=== PATIENT | female | born 1955 | race Caucasian/White ===

== ENCOUNTER 2025-01-22 09:41 | Outpatient (CLI) | payer MEDICARE, SELFPAY ==
--- OUTSIDE RECORDS SUMMARY | 2025-01-22 10:22 | XMS_ITS | Patient Health Record ---
Author Organization [facility] Address [address] [place], [place] [address] Care Team Providers Care Cpr Ambulance Driver Name Role Phone KATARZYNA ESTRELLA Unavailable [phone] MartinezAdryan curran Unavailable Unavailable Allergies Allergen (clinical drug ingredient) Drug/Non Drug Allergy documented on EMR Reaction Allergy Type Onset Date Status Substance with penicillin structure and antibacterial mechanism of action (substance) Penicillins Unknown Drug Allergy 06/04/2019 active Reason For Referral No Information Medications Medication SIG (Take, Route, Frequency, Duration) Notes Start Date End Date Status terbinafine 250 MG Oral Tablet ORAL terbinafine 250 MG Oral TabletOriginal Medicationterbinafine 250 MG Oral Tablet *Reorder from [employer] for eRx and Interaction Alerts* 06/08/2019 Active Plan Of Treatment No Information Insurance Providers Payer Name Payer Address Payer Phone Subscriber Number Group Number Insured Name Patient Relationship to Insured Coverage Start Date Coverage End Date Medicare Part B [place] [address] [place] [address] [id number] WHITESID E, BASS Self - patient is the insured [facility] [address] [address] [place] [address] [id number] WHITESID E, BASS Self - patient is the insured [facility] [address] [place], [place] [id number] WHITESID E, BASS Self - patient is the insured
--- OUTSIDE RECORDS SUMMARY | 2025-01-22 10:23 | XMS_ITS | Clinical Summary ---
Author Organization [facility] Address [address] [place] [address] Phone Care Team Providers Care Sow Farm Technician Name Role Phone Adryan Martinez MD Primary Care Provider [phone] Allergies Active Allergy Reactions Criticality Noted Date Comments Penicillins Hives,Itching,Swelling High 04/04/2019 Medications naproxen sodium (ALEVE) 220 MG Tablet Take 220 mg by mouth 2 times daily (with meals). Active Calcium Carbonate-Vitam in D (CALTRATE 600+D PO) Take 1 Tab by mouth daily. Active estradiol (ESTRACE) 1 MG Tablet Take 1 mg by mouth daily. Hazardous: Medication requires special safe handling and disposal. Active medroxyPROGESTE Alcides (PROVERA) 2.5 MG Tablet Take 2.5 mg by mouth daily. Hazardous: Medication requires special safe handling and disposal. Active Multiple Vitamin (MULTIVITAMINS PO) Take 1 Tab by mouth daily. Active vitamin b-12 (CYANOCOBALAMIN ) 500 MCG Tablet Take 500 mcg by mouth daily. Active ascorbic acid (ASCORBIC ACID) 500 MG Tablet Take 500 mg by mouth daily. Active Menthol, Topical Analgesic, (BIOFREEZE) 4 % Gel by Apply externally route as needed. Active Aspirin-Caffein e (RITA BACK & BODY PAIN EX ST) 500-32.5 MG Tablet Take 1 Tablet by mouth as needed. Active celecoxib (CeleBREX) 200 MG Capsule Take 200 mg by mouth. Active Acetaminophen (TYLENOL PO) Take by mouth. Ac tive Diclofenac Sodium (Voltaren) 1 % Gel Apply 4 times daily as needed. Active Cholecalciferol (Vitamin D-3 Super Strength) 50 mcg Tablet Take 1 Tablet by mouth daily. Active Brinzolamide (AZOPT OP) Place in affected eye(s). Active TURMERIC PO Take 200 mg by mouth daily. Active Active Problems Problem Noted Date Diagnosed Date Spinal stenosis of lumbar re gion without neurogenic claudication 04/05/2019 Family History Medical History Relation Name Comments Chronic Obstructive Pulmonary Disease Father Relation Name Status Comments Father Mother Alive Social History Tobacco Use Types Packs/Day Years Used Date Smoking Tobacco: Former Cigarettes Q uit: 2013 Smokeless Tobacco: Never Tobacco Cessation:Counseling Given: Not Answered Alcohol Use Standard Drinks/Week Comments Not Currently 0 (1 standard drink = 0.6 oz pur e alcohol) SOCIALLY Sexually Active Control Partners Comments Yes Post-menopausal Male Comments Unknown Sex and Gender Information Value Date Recorded Sex Assigned at Not on file Legal Sex Female 8:36 AM CDT Gender Identity Not on file Sexual Orientation Not on file Last Filed Vital Signs Vital Sign Reading Time Taken Comments Blood Pressure 127/66 08/01/2024 12:55 PM DOCUMENTATION ANALYST Pulse 83 08/01/2024 12:46 PM DOCUMENTATION ANALYST Temperature 36.5 C (97.7 F) 08/01/2024 12:46 PM DOCUMENTATION ANALYST Respiratory Rate 16 08/01/2024 12:55 PM DOCUMENTATION ANALYST Oxygen Saturation 96% 08/01/2024 12:55 PM DOCUMENTATION ANALYST Inhaled Oxygen Concentration - - Weight 72.6 kg (160 lb 1 oz) 08/01/2024 9:09 AM DOCUMENTATION ANALYST Height 154.9 cm (5' 1 ) 08/01/2024 9:09 AM DOCUMENTATION ANALYST Body Mass Index 30.24 08/01/2024 9:09 AM DOCUMENTATION ANALYST Plan of Treatment Health Maintenance Due Date Last Done Comments Hepatitis C Virus (HCV) Screening 1957 Colonoscopy 2002 Colorectal Cancer Screening 2002 Cologuard 2007 Immunochemical Fecal Occult Blood 2007 Pneumococcal Immunization (50+ years) (1 of 1 - PCV) 2007 Zoster Immunization (1 of 2) 2007 Influenza Immunization (#1) 2024 07/05/2018, 0 09/19/2012 SARS-COV-2 Immunization ( - season) 2024 Mammogram 02/06/2025 02/07/2024, 05/2 09/2023, 12/11/2020, Additional history exists DEXA Bone Density 02/06/2026 02/07/2024 Respiratory Syncytial Virus (RSV) Immunization (Adult) (1 - 1-dose 75+ series) 2032 DTaP/Tdap/Td Immunization Discontinued 04/02/2016 TdaP Immunization Completed 04/02/2016 Hepatitis B Immunization Aged Out No longer eligible based on patient's age to complete this topic Meningococcal Immunization (ACWY) Aged Out No longer eligible based on patient's age to complete this topic Rotavirus Immunization Aged Out No lo nger eligible based on patient's age to complete this topic Insurance MEDICARE COMMERCIAL GENERIC Care Teams Sow Farm Technician Relationship Specialty Start Date End Date Adryan Martinez MD [address] [place] [id number] PCP - General Internal Medicine 04/04/19
--- OUTSIDE RECORDS SUMMARY | 2025-01-22 10:23 | XMS_ITS | Clinical Summary ---
Author Organization [facility] Address [address] [place] [address] Phone Care Team Providers Care Locomotive Lubricating Systems Clerk Name Role Phone Adryan Martinez MD Primary Care Provider [phone] Allergies Active Allergy Reactions Criticality Noted Date Comments Penicillins Hives,Swelling High 12/02/2011 Medications cyanocobalamin (VITAMIN B-12) 1,000 mcg Oral Tab Take 1,000 mcg by mouth daily. Active VitC-Dietary Combo. No.18 60-200 mg Oral Cap Take by mouth. Active MULTIVITAMIN W-MINERALS/LUTEI N (CENTRUM SILVER ORAL) Take by mouth. Active CALCIUM CARBONATE/VITAMI N D3 (CALTRATE 600 + D ORAL) Take by mouth. Active estradiol (ESTRACE) 1 mg tablet TAKE ONE TABLET BY MOUTH DAILY. 90 Tablet 3 03/10/2017 Active medroxyPROGESTER one (PROVERA) 2.5 mg tablet TAKE 1 TABLET BY MOUTH DAILY. 90 Tablet 3 03/10/2017 Active Active Problems No known active problems Immunizations Immunization Administration Dates Next Due Influenza Seasonal Unspecified Formulation IM Family History Medical History Relation Name Comments Breast Cancer Neg Hx Cancer Neg Hx Ovarian Cancer Neg Hx Social History Tobacco Use Types Packs/Day Years Used Date Smoking Tobacco: Former Cigarettes 0.5 40 Smokeless Tobacco: Former Quit: 05/20/2011 Tobacco Cessation:Ready to Q uit: Yes; Counseling Given: No Comments:needs something to help with the smoking Alcohol Use Standard Drinks/Week Comments Yes 0 (1 standard drink = 0.6 oz pur e alcohol) socially Comments No Sex and Gender Information Value Date Recorded Sex Assigned at Not on file Legal Sex Female 6:07 AM SENIOR CORPORATE STRATEGY MANAGER Gender Identity Not on file Sexual Orientation Not on file 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 on file Not on file Not on file Last Filed Vital Signs Vital Sign Reading Time Taken Comments Blood Pressure 120/68 03/01/2017 10:17 AM CDT Pulse - - Temperature - - Respiratory Rate - - Oxygen Saturation - - Inhaled Oxygen Concentration - - Weight 73.9 kg (163 lb) 03/01/2017 10:17 AM CDT Height 157.5 cm (5' 2 ) 03/01/2017 10:17 AM CDT Body Mass Index 29.81 03/01/2017 10:17 AM CDT Plan of Treatment Health Maintenance Due Date Last Done Comments DTAP/TDAP/TD VACCINES (1 - Tdap) 1976 COLORECTAL SCREENING 2002 Colorectal Cancer Screening 2002 FIT-DNA Q 3 years 2002 FIT/FOBT Q 1 year 2002 Flex Sig/CT Colonography Q 5 years 2002 PNEUMOCOCCAL VACCINE 50+ YEA RS (1 of 1 - PCV) 2007 ZOSTER VACCINE (1 of 2) 2007 BREAST CANCER SCREENING 03/01/2018 03/01/20 17 (Previously completed), 03/01/2017, 01/06/2016, Additional history exists OSTEOPOROSIS SCREENING 2022 INFLUENZA VACCINE (#1) 2024 09/19/2012 RSV VACCINE (60+ or ) (1 - 1-dose 75+ series) 2032 Procedures Procedure Name Priority Date/Time Associated Diagnosis Comments MAMMO SCREEN BILAT W OR WO CAD Routine 03/01/2017 9:57 AM CDT Visit for screening mammogram from Last 3 Months or Most Recently Relevant to Health Maintenance Results * MAMMO SCREEN BILAT W OR WO CAD (03/01/2017 9:57 AM CDT) Anatomical Region Laterality Modality Breast Bilateral Mammography Narrative 03/01/2017 11:08 AM CDT Bilateral digital screening mammogram with computer assisted diagnosis History: Annual screening exam. Findings: A bilateral screening mammogram was performed. Comparison is made to : 01/06/2016, 12/24/2014, and 12/18/2013 There are scattered fibroglandular densities. No new masses, suspicious calcifications, or areas of asymmetry or distortion are identified. CAD was utilized. Impression: Negative screening mammogram. Recommendation: Routine annual follow-up Overall Assessment: Birads Category 1: Negative Zion Tierney MD MAMMO ORDERABLES Final Result from Last 3 Months or Most Recently Relevant to Health Maintenance Insurance [facility] BLUE ACCESS/TRUE BLUE PPO Care Teams Locomotive Lubricating Systems Clerk Relationship Specialty Start Date End Date Adryan Martinez MD [address] [place] [phone] PCP - General Internal Medicine 10/15/11
--- OUTSIDE RECORDS SUMMARY | 2025-01-22 10:23 | XMS_ITS | Clinical Summary ---
Author Organization [facility] Address [address] [place] [address] Care Team Providers Care Dredge Worker Name Role Phone Adryan Martinez MD Primary Care Provider [phone] Allergies Active Allergy Reactions Criticality Noted Date Comments Penicillins Hives 03/18/2021 Medications medroxyPROGESTER one 2.5 MG tablet Take 2.5 mg by mouth daily. 03/06/2021 Active vitamin B-12 1000 MCG tablet Take 1,000 mcg by mouth daily. Active Active Problems No known active problems Encounters Date Type Department Care Team Description 11/20/2024 10:08 AM PLATER APPRENTICE - 11/20/2024 11:59 PM [facility] Hospital Encounter [facility] [address] [place] [address] Selena Wolf PA Discharge Disposition: Home or Self Care (Routine Discharge) 11/20/2024 Travel from Last 3 Months Family History Medical History Relation Comments Breast Cancer Daughter No Known Problems Father No Known Problems Mother Relation Status Comments Daughter Father Mother Social History Tobacco Use Types Packs/Day Years Used Date Smoking Tobacco: Former Cigarettes Q uit: 10/16/2010 Smokeless Tobacco: Never Tobacco Cessation:Counseling Given: No Comments:quit Alcohol Use Standard Drinks/Week Comments Yes 0 (1 standard drink = 0.6 oz pur e alcohol) rare Comments No Sex and Gender Information Value Date Recorded Sex Assigned at Not on file Legal Sex Female 8:27 PM CDT Gender Identity Not on file Sexual Orientation Not on file Last Filed Vital Signs Vital Sign Reading Time Taken Comments Blood Pressure 136/89 05/07/2021 10:30 AM CDT Pulse 77 05/07/2021 10:30 AM CDT Temperature 35.9 C (96.6 F) 05/07/2021 10:30 AM CDT Respiratory Rate 15 03/18/2021 6:38 PM CDT Oxygen Saturation 98% 05/07/2021 10:30 AM CDT Inhaled Oxygen Concentration - - Weight 79.5 kg (175 lb 3.2 oz) 05/07/2021 10:30 AM CDT Height 157.5 cm (5' 2 ) 05/07/2021 10:30 AM CDT Body Mass Index 32.04 05/07/2021 10:30 AM CDT Plan of Treatment Health Maintenance Due Date Last Done Comments Colorectal Cancer Screening Colonoscopy (10 Years) 1955 Hepatitis C 1975 DTaP, Tdap and Td Vaccines (1 - Tdap) 1976 Pneumococcal Vaccine: 50+ Years (1 of 1 - PCV) 2007 Zoster Vaccines (1 of 2) 2007 Annual Medicare Wellness Visit 2022 COVID-19 Vaccine ( - 2023- season) 2024 Mammogram Screening 02/06/2026 02/07/2024, 12/11/2020, 03/01/2017, Additional history exists RSV Immunization or 60+ Years (1 - 1-dose 75+ series) 2032 Dexa Scan (General) Completed 02/07/2024 Meningococcal B Vaccine Aged Out No l onger eligible based on patient's age to complete this topic Meningococcal Vaccine Aged Out No mark anthony oralia eligible based on patient's age to complete this topic RSV Immunizations Under 20 Months Aged Out No longer eligible based on patient's age to complete this topic Procedures Procedure Name Priority Date/Time Associated Diagnosis Comments XR CERV SPINE W OBL 5V Routine 11/20/2024 10:48 AM PLATER APPRENTICE Cervicalgia Other disturbances of skin sensation MG SCREENING W SVEN ERIN DIGI Routine 02/07/2024 3:46 PM CDT Encounter for screening mammogram for malignant neoplasm of breast BONE DENSITY/DEXA Routine 02/07/2024 3:4 6 PM CDT Postmenopausal from Last 3 Months or Most Recently Relevant to Health Maintenance Results * XR CERV SPINE W OBL 5V (11/20/2024 10:48 AM PLATER APPRENTICE) Anatomical Region Laterality Modality Spine Radiographic Chery ging 11/21/2024 8:10 AM PLATER APPRENTICE Impressions 11/21/2024 8:12 AM PLATER APPRENTICE IMPRESSION: Degenerative changes of the mid cervical spine. Ordered By: SELENA WOLF Interpreted By: Mychal Mayo MD, 11/21/2024 8:10 AM Narrative 11/21/2024 8:12 AM PLATER APPRENTICE [facility] [address] [address] [place] [address] Procedure(s): XR CERV SPINE W OBL 5V Date of service: 11/20/2024 10:37 AM Provided clinical information: 69 years, Female, CERVICALGIA Procedure and materials: AP, lateral, odontoid, and oblique views of the cervical spine. Comparison studies: None. Findings: The odontoid is intact. There is possibly 1 to 2 mm of subluxation of C4 relative to C5 and C5 relative to C6. This is suspected to be degenerative in etiology. Loss height of the disc space is present at C6-7. Prevertebral soft tissues are within normal limits. There is left neural foraminal narrowing at C3-4 and C5-6. No fracture, dislocation or acute bony abnormality. Procedure Note Mychal Mayo MD - 11/21/2024 [facility] [address] [address] [facility]. [place] [id number] Procedure(s): XR CERV SPINE W OBL 5V Date of service: 11/20/2024 10:37 AM Provided clinical information: 69 years, Female, CERVICALGIA Procedure and materials: AP, lateral, odontoid, and oblique views of thecervical spine. Comparison studies: None. Findings: The odontoid is intact. There is possibly 1 to 2 mm of subluxation of C4 relative to C5 and [id number] to C6. This is suspected to be degenerative in etiology. Lossheight of the disc space is present at C6-7. Prevertebral soft tissues are within normal limits. There is left neural foraminal narrowing at C3-4 and C5-6. No fracture, dislocation or acute bony abnormality. IMPRESSION: Degenerative changes of the mid cervical spine. Ordered By: SELENA WOLF Interpreted By: Mychal Mayo MD, 11/21/2024 8:10 AM [facility] Final Result * MG SCREENING W SVEN ERIN DIGI (02/07/2024 3:46 PM CDT) Anatomical Region Laterality Modality Breast Bilateral Mammography 02/07/2024 4:05 PM CDT Impressions 02/07/2024 4:06 PM CDT IMPRESSION: No suspicious mammographic findings. Recommendation: 1. Routine Screening, Bilateral Assessment: ACR BI-RADS 2 - BENIGN FINDING(S) Ordered By: SIGRID SALVADOR Interpreted By: Zohaib Sexton, 02/07/2024 4:05 PM Narrative 02/07/2024 4:06 PM CDT Examination: Screening bilateral mammogram Exam Date/Time: 02/07/2024 3:00 PM Clinical history: No current complaints. Comparison: 12/11/2020 Technique: Digital screening mammography of both breasts was performed. Breast tomosynthesis acquisitions were obtained and reviewed. This study was read with the assistance of a computer-aided detection system. Tissue density: There are scattered areas of fibroglandular density. Findings: No suspicious masses, malignant appearing calcifications, skin thickening or other abnormalities are present. No significant change from the prior exam. us Sigrid Salvador DO MAMMO Final Resul t * BONE DENSITY/DEXA (02/07/2024 3:46 PM CDT) Anatomical Region Laterality Modality Bone Bone Density 02/07/2024 8:26 PM CDT Impressions 02/07/2024 8:27 PM CDT IMPRESSION: WHO Classification: osteopenia. FRAX: 1.4% chance of hip fracture and 9.9% chance of major osteoporotic fracture over the next 10 years. Referred By: SIGRID SALVADOR Interpreted By: Gonsalo Bo MD, 02/07/2024 8:26 PM Narrative 02/07/2024 8:27 PM CDT Examination: Bone Density Axial Exam Date/Time: 02/07/2024 3:00 PM Reason For Exam: Postmenopausal Findings: DEXA bone densitometry The bone mineral density (BMD) was determined by dual-energy x-ray absorptiometry, the results are as follows: AP Lumbar Spine L1 through L4 BMD Patient (GM/SQCM): 1.045 T-Score (Standard deviations from young adult peak bone density): 0.0 Left femoral neck: BMD Patient (GM/SQCM): 0.639 T-Score (Standard deviations from young adult peak bone density): -1.9 Total Left femur: BMD Patient (GM/SQCM): 0.897 T-Score (Standard deviations from young adult peak bone density): -1 Recommendations: All patients should ensure an adequate intake of dietary calcium and vitamin D. The NOF recommend adults under the age of 50 need 1000 mg of calcium and 400-800 IU of vitamin D daily. Effective therapy for the prevention and treatment of osteoporosis include biphosphonates. Follow-up: People with diagnosed cases of osteoporosis or at high risk for fracture should have regular bone mineral density test. For patients eligible for Medicare, routine testing is allowed once every 2 years. Testing frequency can be increased to one year for patients who have rapidly progressing disease, those who are receiving or discontinuing medical therapy to restore bone mass, or have additional risk factors. Procedure Note Gonsalo Bo MD - 02/07/2024 Examination: Bone Density Axial Exam Date/Time: 02/07/2024 3:00 PM Reason For Exam: Postmenopausal Findings: DEXA bone densitometry The bone mineral density (BMD) was determined bydual-energy x-ray absorptiometry, the results are as follows: AP Lumbar Spine L1 through L4 BMD Patient (GM/SQCM): 1.045 T-Score (Standard deviations from young adult peak bonedensity): 0.0 Left femoral neck: BMD Patient (GM/SQCM): 0.639 T-Score (Standard deviations from young adult peak bonedensity): -1.9 Total Left femur: BMD Patient (GM/SQCM): 0.897 T-Score (Standard deviations from young adult peak bonedensity): -1 Recommendations: All patients should ensure an adequate intake of dietary calcium andvitamin D. The NOF recommend adults under the age of 50 need 1000 mg ofcalcium and 400-800 IU of vitamin D daily. Effective therapy for theprevention and treatment of osteoporosis include biphosphonates. Follow-up: People with diagnosed cases of osteoporosis or at high risk for fractureshould have regular bone mineral density test. For patients eligible forMedicare, routine testing is allowed once every 2 years. Testing frequencycan be increased to one year for patients who have rapidly progressingdisease, those who are receiving or discontinuing medical therapy torestore bone mass, or have additional risk factors. IMPRESSION: WHO Classification: osteopenia. FRAX: 1.4% chance of hip fracture and 9.9% chance of major osteoporoticfracture over the next 10 years. Referred By: SIGRID SALVADOR Interpreted By: Gonsalo Bo MD, 02/07/2024 8:26 PM us Sigrid Salvador DO DEXA Final Resul t from Last 3 Months or Most Recently Relevant to Health Maintenance Insurance MEDICARE [facility] [employer] Care Teams Dredge Worker Relationship Specialty Start Date End Date Adryan Martinez MD [address] [place] [id number] PCP - General INTERNAL MEDICINE 05/11/19
--- OUTSIDE RECORDS SUMMARY | 2025-01-22 10:23 | XMS_ITS ---
Author Organization [facility] Address [address] [place], [place] [id number] Care Team Providers Care Day Care Supervisor Name Role Phone KATARZYNA ESTRELLA Unavailable [phone] Adryan Martinez Unavailable Unavailable YANCI CONNOR Unavailable [phone] Allergies Allergen (clinical drug ingredient) Drug/Non Drug Allergy documented on EMR Reaction Allergy Type Onset Date Status Substance with penicillin structure and antibacterial mechanism of action (substance) Penicillins Unknown Drug Allergy 06/04/2019 active REASON FOR VISIT L ft rolled it at home Medications Medication SIG (Take, Route, Frequency, Duration) Notes Start Date End Date Status terbinafine 250 MG Oral Tablet ORAL terbinafine 250 MG Oral TabletOriginal Medicationterbinafine 250 MG Oral Tablet *Reorder from [employer] for eRx and Interaction Alerts* 06/08/2019 Active Vital Signs Height 62.00 in 11/17/2023 Weight 170 lbs 11/17/2023 BMI 31.09 kg/m2 11/17/2023 Height-cm 157.48 cm 11/17/2023 Weight-kg 77.11 kg 11/17/2023 Encounters Encounter Location Date Provider Diagnosis [address] [id number] 11/17/2023 YANCI CONNOR Sprain of calcaneofibular ligament of left ankle, initial encounter S93.412A ; Localized edema R60.0 ; Pain in left foot M79.672 and Flat foot [pes planus] (acquired), left foot M21.42 Assessments Encounter Date Diagnosis (ICD Code) Assessment Notes Treatment Notes Treatment Clinical Notes Section Notes 11/17/2023 Sprain of calcaneofibular ligament of left ankle, initial encounter (ICD-10 - S93.412A) Ankle Sprain: Discussed the treatment course for ankle sprain. Explained that ankle injuries may take a total of 6-12 weeks for recovery based on the severity of the sprain. Stressed the importance of rest, activity modification, and bracing. A trilok ankle brace was dispensed for the pateint's left and the patient was instructed on it's use. 11/17/2023 Localized edema (ICD-10 - R60.0) 11/17/2023 Pain in left foot (ICD-10 - M79.672) 11/17/2023 Flat foot [pes planus] (acquired), left foot (ICD-10 - M21.42) Patient educated on etiology and treatment options for flexible flat foot deformity. Educated patient on how a flexible flat foot deformity can in turn result in pathology such as hammer toe, bunions, equinus, neuromas. Recommend use of custom foot inserts to help alleviate plantar peak pressures and accomodate for digital deformity to feet. Plan Of Treatment Treatment Notes Assessment Notes Sprain of calcaneofibular li gament of left ankle, initial encounter Ankle Sprain: Discussed the treatment course for ankle sprain. Explained that ankle injuries may take a total of 6-12 weeks for recovery based on the severity of the sprain. Stressed the importance of rest, activity modification, and bracing. A trilok ankle brace was dispensed for the pateint's left and the patient was instructed on it's use. Flat foot [pes planus] (acquired), left foot Patient educated on etiology and treatment options for flexible flat foot deformity. Educated patient on how a flexible flat foot deformity can in turn result in pathology such as hammer toe, bunions, equinus, neuromas. Recommend use of custom foot inserts to help alleviate plantar peak pressures and accomodate for digital deformity to feet. Next Appt Details Follow Up: prn, Reason: Progress Notes * SHELIA COLUDDOB:1955 (68 yo F)Acc No.[id number]:11/17/2023 Patient: Monse SHELIA SUAREZ Provider: Bryan CONNOR :1955 A ge:68 Y S ex:Female Date:11/17/2023 Address:[address], [place] [address] Subjective: * Chief Complaints: * 1 . L ft rolled it at home. * HPI: H PI: New Complaint E stablished patient presents with a new complaint., Patient complains of an issue to Left ankle, Duration of problem is few hours. Patient rolled her ankle this morning., Patient states since she rolled the ankle it has been swelling and causing pain with each step, especially with motion to the ankle joint.. * ROS: G eneral / Constitutional: Patient denies w eakness. C ardiovascular: Patient denies c hest pain, history of DE, irregular heartbeat. M usculoskeletal: Patient complains of j oint stiffness, joint pain. ? P eripheral Vascular: Patient denies b lanching of skin, cold extremities, decreased sensation in extremities. S kin: Patient denies f ungal nails, itching. N eurologic: Patient denies d izziness, gait abnormality, headache. * Medical History: * Medications: T aking terbinafine 250 MG Oral Tablet ORAL , Notes to Pharmacist: terbinafine 250 MG Oral TabletOriginal Medicationterbinafine 250 MG Oral Tablet *Reorder from [employer] for eRx and Interaction Alerts* * Allergies: P enicillins: Allergy - Onset Date 06/04/2019. Objective: * Vitals: W t:170lbs, Wt-k.11 kg, Ht: 62.00 in, Ht-cm: 157.48 cm, BMI:31.09Index, Body Surface Area: 1.83. * Examination: P hysical Examination: V ascular: Dorsalis Pedis pulse 2/4 left foot Posterior Tibial pulse 2/4 left foot Dorsalis Pedis pulse 2/4 right foot Posterior Tibial pulse 2/4 right foot, Capillary Refill Time is noted to be less than 3 secs to ten digits, temperature gradient is warm to cool to bilateral lower extremity and pedal hair present, non pitting edema noted over lateral aspect of ankle joint left Dermatologic: there are no open lesions, no signs of active clinical infection, no erythema noted, no ecchymoses, nails are at hygienic length during todays visit Neurology: protective sensation intact to light touch bilateral digits one through five, vibratory sensation intact to first metatarsophalangeal joint bilaterally Musculoskeletal: mild pain to palpation sinus tarsi left foot, mild pain to palpation ATFL left ankle, no pain along anterior ankle joint line, no pain noted to styloid process fifth metatarsal left foot, no pain along course of peroneal tendons left ankle, no pain with anterior drawer test or talar tilt test left ankle. Assessment: * Assessment: 1. S prain of calcaneofibular ligament of left ankle, initial encounter - S93.412A (Primary)?2. L ocalized edema - R60.0 3 . P ain in left foot - M79.672 4 . F lat foot [pes planus] (acquired), left foot - M21.42 Plan: * Treatment: 2. F lat foot [pes planus] (acquired), left foot Notes: Patient educated on etiology and treatment options for flexible flat foot deformity. Educated patient on how a flexible flat foot deformity can in turn result in pathology such as hammer toe, bunions, equinus, neuromas. Recommend use of custom foot inserts to help alleviate plantar peak pressures and accomodate for digital deformity to feet. * Procedure Codes: L 1902 AFO NANCY GATYRESE PREFAB W/FIT&ADJ, Modifiers: LT * Follow Up: p rn * Billing Information: * Visit Code: 46072 Office Visit, Est Pt., Level 3. * Procedure Codes: L1902 AFO NANCY GAUNTLT PREFAB W/FIT&ADJ. Modifiers: LT * CTOR OF ACCOUNTING Sign off status: Completed true * Provider: Bryan CONNOR Date: 0 11/17/2023 Generated for Albertina poole/Nghia/Suzan on: 0 01/22/2025 10:22 AM CDT History and Physical Notes * HPI (History of Present Illness) Category Sub-Category Detail Notes Category Not es HPI New Complaint Established therese ent presents with a new complaint., Patient complains of an issue to Left ankle, Duration of problem is few hours. Patient rolled her ankle this morning., Patient states since she rolled the ankle it has been swelling and causing pain with each step, especially with motion to the ankle joint. Examination Category Sub-Category Detail Notes Category Not es Physical Examination Vascular: Dorsalis Pedis pulse 2/4 left foot Posterior Tibial pulse 2/4 left foot Dorsalis Pedis pulse 2/4 right foot Posterior Tibial pulse 2/4 right foot, Capillary Refill Time is noted to be less than 3 secs to ten digits, temperature gradient is warm to cool to bilateral lower extremity and pedal hair present, non pitting edema noted over lateral aspect of ankle joint left Dermatologic: there are no open lesions, no signs of active clinical infection, no erythema noted, no ecchymoses, nails are at hygienic length during todays visit Neurology: protective sensation intact to light touch bilateral digits one through five, vibratory sensation intact to first metatarsophalangeal joint bilaterally Musculoskeletal: mild pain to palpation sinus tarsi left foot, mild pain to palpation ATFL left ankle, no pain along anterior ankle joint line, no pain noted to styloid process fifth metatarsal left foot, no pain along course of peroneal tendons left ankle, no pain with anterior drawer test or talar tilt test left ankle
--- OUTSIDE RECORDS SUMMARY | 2025-01-22 10:23 | XMS_ITS | Data Portability ---
Author Organization [facility] for [facility], [id number] [facility] Address [address] [place] [address] Assessment No assessment recorded. Plan of Treatment Reminders Order Date Submit Date Provider Last Modified By Organization Details Last Modified Time Details Appointments ANNUAL- EST 15 2025 10:45A M HETAL ZACARIAS Not available Not available Not available Lab None recorded. Referral None recorded. Procedures None recorded. Surgeries None recorded. Imaging MAMMO, screening , digital, bilateral 2024 [facility] As Of [facility]/09/24), [address] [place], [address], 01/09/2025 12:44:41 Medication Orders None recorded. Patient TargetsNo targets recorded. Patient InstructionsNo instructions recorded. Reason for Referral None Reported. Problems Name Problem SNOMED Code Status Onset Date Resolution Date Notes Provider Name and Address Organization Details Recorded Time Genitourina ry syndrome of menopause 5309107781697 9104 Active 2024 HETAL ZACARIAS [address] [facility] [address], [place], [address] [place] [address] for [facility] 12:39:56 Problem Notes None recorded. Procedures Surgical History Date Name Laterality Status Provider Name and Address Organization Details Recorded Time 02/07/20 Date of Last Mammogram completed Zuleyma Isidro [facility] 01/09/2025 12:42:49 10/20/19 21 Date of Last Pap Smear completed Zuleyma Isidro [facility] for [facility] 01/09/2025 09:52:54 09/19/19 19 Date of Last Colonoscopy completed Zuleyma Isidro [facility] for [facility] 01/09/2025 09:54:51 09/19/19 19 epidural steroid injection completed Zuleyma Isidro [facility] 01/09/2025 09:56:32 Tubal Ligation completed Zuleyma Isidro [facility] 01/09/2025 09:57:27 uterus destructive procedure completed Zuleyma Isidro [facility] for [facility] 01/09/2025 09:58:51 Inject spine lumbar/sacral completed Not Available [facility] 01/17/2025 16:15:13 laparoscopic sterilization completed Not Available [facility] 01/17/2025 16:15:13 extraction of wisdom tooth completed Not Available [facility] 01/17/2025 16:15:13 colonoscopy completed Not Available [facility] 01/17/2025 16:15:13 Imaging Results None recorded. Procedure Notes None recorded. Medical Equipment None Reported. Allergies Allergen ID Allergen Name Allergen Category Reaction Reaction Severity Criticality Documentation Date Start Date Code Code System Note Provider Name and Address Organization Details Recorded Time 056847 Product containin g penicilli n (product) medicatio n Not available Not available Not available 01/09/2025 82112 8001 [facility] 12:17:19 Medications Name Sig Start Date Stop Date Status Note LastModified by Organization Details LastModified Time celecoxib 200 mg capsule TAKE 1 CAPSULE(S ) BY MOUTH DAILY DIRECTED 01/09 completed Not Available Not Available Not Available prednisone 10 mg tablet TAKE 2TABS DAILY X5DAYS, 1TAB DAILY X5DAYS, 1TAB EVERY OTHER DAY UNTIL FINISHED 01/09 completed Not Available Not Available Not Available pregabalin 50 mg capsule TAKE 1 CAPSULE BY MOUTH TWICE A DAY active Not Available Not Available No t Available Ozempic 0.25 mg or 0.5 mg (2 mg/3 mL) subcutaneou s pen injector INJECT 0.25MG UNDER THE SKIN ONCE WEEKLY FOR 4 WEEKS active Not Available Not Available No t Available Vitals Date Recorded Body height Body mass index (BMI) Body weight Systolic blood pressure Diastolic blood pressure Provider Name and Address Organization Details Last Updated DateTime 01/09/2025 154.94 cm 28.8 kg/m2 73802.76 g 108 mm[Hg] 58 mm[Hg] Zuleyma Dwaine [facility] for [facility] 12:20:49 Social History Question Answer Notes LastModified by Organizat ion Details LastModified Time Tobacco Smoking Status Former Smoker Zuleyma Dwaine [facility] 01/09/2025 12:17:19 Do You Have An Advance Directive? No Information not available 01/09/2025 What Is Your Level Of Alcohol Consumption? Occasional Information not available 01/09/2025 If You Are , What Was Your Level Of Alcohol Consumption Prior To ? None Information not available 01/09/2025 How Many Years Have You Consumed Alcohol? 50 Information not available 01/09/2025 What Is Your Level Of Caffeine Consumption? Occasional Information not available 01/09/2025 Are You Currently Employed? No Information not available 01/09/2025 What Type Of Diet Are You Following? REGULAR Information not available 01/09/2025 What Is Your Relationship Status? Information not available 01/09/2025 At What Age Did You Start Smoking Tobacco? 17 Information not available 01/09/2025 How Much Tobacco Do You Smoke? No Information not available 01/09/2025 Do You Use Any Illicit Or Recreational Drugs? No [email or web address] Information not available 01/17/2025 Sex: Female Functional Status None recorded. Mental Status None recorded. Family History Relationship Description Onset Age of this Age Resolved Age Notes LastModified by Organization Details LastModified Time Maternal Grandfather Myocardial infarction Myocar dial Infarc tion Not available 01/17/2025 18:07:12 Father Cerebrovascu lar accident Stroke Not available 09/2024 18:07:12 Father Malignant neoplastic disease Cancer father -prost ate PGM- colon, daught er-jackson ast Not available 01/17/2025 18:07:13 Paternal Grandfather Cerebrovascu lar accident Stroke Not available 09/2024 18:07:12 Daughter Malignant neoplastic disease 39 Cancer father -prost ate PGM- colon, daught er-jackson ast Not available 01/17/2025 18:07:12 Daughter Family history of breast cancer 39 Family histor y of breast cancer daught er had geneti c testin g that was negati ve Not available 01/17/2025 18:07:13 Paternal Grandmother Malignant neoplastic disease Cancer father -prost ate PGM- colon, daught er-jackson ast Not available 01/17/2025 18:07:13 Medical History Condition Response Cancer- Genetic screening Gynecological History Statement/Question Response History of PCOS N Date of Last Mammogram 02/07/2024 History of Fibroids N Date of LMP History of Infertility N History of Vulvar Dysplasia N Current Control Method: Menopause History of Cervical Dysplasia N Age at Menarche 14 Current Control Method History of Recurrent Ovarian Cysts N History of Endometriosis N Date of Last Colonoscopy 09/19/2018 Sexually Active? N History of Dysmenorrhea N Menses Monthly N Date of Last HPV Test 10/20/2020 Date of Last Pap Smear 10/20/2020 History of Sexually Transmitted Infectio n N Date of Last Bone Density 11/15/23 Obstetrics History GPAL:G 2 P 2 0 0 2 Type Value Full Term 2 Living 2 Total 2 Immunizations Vaccine Type Date Status Note Provider Nam e and Address Organization Details Recorded Time zoster recombinant 09/19/2015 completed Zuleyma Isidro [facility] 01/09/2025 09:52:25 Past Encounters Encounter ID Performer Location Encounter Start Date Encounter Closed Date Diagnosis/Indication Diagnosis SNOMED-CT Code Diagnosis ICD10 Code Diagnosis Note [id number] [address], [place] [id number] [facility] [address] [facility] [place] [address] 01/09/2025 11:54:28 01/09/2025 12:40:40 Gynecologic examination 39701725 Z01.419 -f/u 1 year for annual [employer] exam Screening mammography 24 369901 Z12.31 -call to schedule mammogram Depression screening 171 806608 Z13.31 01/09/25-sc ore 0 Genitourin betzaida syndrome of menopause [id number] 1088437 N95.8 01/09/25-de clines vaginal estradiol cream at this time-call if you decide to try it and I will send rx Health Concerns Section Related Observation LastModified by Organization Detai ls LastModified Time None Recorded Concern Status LastModified by Organization Details LastModified Time None Recorded Advance Directives Directive N: Payers Encounter Date Sequence Insurance Name Policy Number Policy Kauffman Covered Member ID Kauffman Member ID Guarantor Name 01/09/2025 1 [place] Kya Ingram [id number] Kya Ingram 01/09/2025 2 [employer] (MEDICARE SUPPLEMENT) PLAN G Kya Ingram [id number] Kya Ingram Notes Date Note Type Note Provider Name and Address Organization Details Recorded Time 01/09/2025 text/html [facility] Annual Well-Women Visit Age 65+Reported bypatient.Current Medical History:reviewed and documented Last Pap smear:not applicable Mammography:due Bone Density Study:up-to-date Colorectal screening:due Sexually Active:Yes: same partner; dryness with intercourse-uses [place] STI Screen:declines STI testingNotes:01/09 doing well, denies c/o. -cristobal HETAL SYKES [facility] [address] [facility] [address], [place], [address], [facility] 01/09/2025 12:42:51 OBGyn Episode No OBEpisode recorded.
--- NOTE | 2025-01-22 11:00 | NEURO_ITS ---
Impression: # Complains of pain in all extremities. Non-diabetic. ? # Normal Nerve Conduction Study of all extremities. ? # Normal needle/EMG exam without any neurogenic changes. ? # Clinical correlation recommended. Nerve Conduction Studies Anti Sensory Summary Table ?Stim Site NR Peak (ms) P-T Amp (?V) Site1 Site2 Delta-P (ms) Dist (cm) Abhishek (m/s) Left Median Anti Sensory (2-3nd Digit) Wrist ? 3.2 45.9 Wrist 2-3nd Digit 3.2 14.0 44 Wrist ? 3.3 51.8 Wrist 2-3nd Digit 3.2 14.0 44 Right Median Anti Sensory (2-3nd Digit) Wrist ? 2.9 47.2 Wrist 2-3nd Digit 2.9 14.0 48 Wrist ? 3.1 58.0 Wrist 2-3nd Digit 2.9 14.0 48 Left Radial Anti Sensory (Base 1st Digit) Wrist ? 2.3 39.1 Wrist Base 1st Digit 2.3 0.0 Right Radial Anti Sensory (Base 1st Digit) Wrist ? 2.4 27.6 Wrist Base 1st Digit 2.4 0.0 Left Sup Fibular Anti Sensory (Ant Lat Mall) 14 cm ? 3.3 5.8 14 cm Ant Lat Mall 3.3 16.0 48 Right Sup Fibular Anti Sensory (Ant Lat Mall) 14 cm ? 3.6 23.1 14 cm Ant Lat Mall 3.6 16.0 44 Left Sural Anti Sensory (Lat Mall) Calf ? 3.5 20.3 Calf Lat Mall 3.5 16.0 46 Right Sural Anti Sensory (Lat Mall) Calf ? 3.5 10.9 Calf Lat Mall 3.5 16.0 46 Left Ulnar Anti Sensory (5th Digit) Wrist ? 3.0 39.3 Wrist 5th Digit 3.0 14.0 47 Right Ulnar Anti Sensory (5th Digit) Wrist ? 2.5 68.5 Wrist 5th Digit 2.5 14.0 56 Motor Summary Table ?Stim Site NR Onset (ms) O-P Amp (mV) Site1 Site2 Delta-0 (ms) Dist (cm) Abhishek (m/s) Left Median Motor (Abd Poll Brev) Wrist ? 3.1 2.3 Elbow Wrist 4.9 28.0 57 Elbow ? 8.0 2.5 Right Median Motor (Abd Poll Brev) Wrist ? 3.2 2.9 Elbow Wrist 4.5 27.0 60 Elbow ? 7.7 2.7 Left Peroneal Motor (Vastus Med) Ankle ? 4.5 2.9 Popit Ankle 7.4 39.0 53 Popit ? 11.9 2.4 Right Peroneal Motor (Vastus Med) Ankle ? 4.6 2.8 Popit Ankle 7.5 38.0 51 Popit ? 12.1 2.6 Left Tibial Motor (Abd Holcomb Brev) Ankle ? 4.8 6.1 Knee Ankle 8.6 39.0 45 Knee ? 13.4 3.4 Right Tibial Motor (Abd Holcomb Brev) Ankle ? 4.8 4.8 Knee Ankle 8.1 38.0 47 Knee ? 12.9 4.0 Left Ulnar Motor (Abd Dig Minimi) Wrist ? 2.8 6.4 A Elbow Wrist 5.4 28.0 52 A Elbow ? 8.2 5.7 B Elbow Wrist 3.8 20.0 53 B Elbow ? 6.6 4.7 Right Ulnar Motor (Abd Dig Minimi) Wrist ? 2.8 5.3 A Elbow Wrist 5.2 28.0 54 A Elbow ? 8.0 4.1 B Elbow Wrist 3.6 20.0 56 B Elbow ? 6.4 3.8 F Wave Studies ?NR F-Lat (ms) L-R F-Lat (ms) Left Median (Mrkrs) (Abd Poll Brev) ? 26.48 0.58 Right Median (Mrkrs) (Abd Poll Brev) ? 25.91 0.58 Left Peroneal (Mrkrs) (EDB) ? 49.53 0.75 Right Peroneal (Mrkrs) (EDB) ? 50.28 0.75 Left Tibial (Mrkrs) (Abd Hallucis) ? 49.97 0.80 Right Tibial (Mrkrs) (Abd Hallucis) ? 50.77 0.80 Left Ulnar (Mrkrs) (Abd Dig Min) ? 27.34 0.08 Right Ulnar (Mrkrs) (Abd Dig Min) ? 27.42 0.08 EMG ?Side Muscle Nerve Root Ins Act Fibs Amp Dur Recrt Comment Right 1stDorInt Ulnar C8-T1 Nml Nml Nml Nml Nml Right Ext Indicis Radial (Post Int) C7-8 Nml Nml Nml Nml Nml Right Ext Digitorum Radial (Post Int) C7-8 Nml Nml Nml Nml Nml Right BrachioRad Radial C5-6 Nml Nml Nml Nml Nml Right PronatorTeres Median C6-7 Nml Nml Nml Nml Nml Right Abd Poll Brev Median C8-T1 Nml Nml Nml Nml Nml Right ABD Dig Min Ulnar C8-T1 Nml Nml Nml Nml Nml Right FlexPolLong Median (Ant Int) C7-8 Nml Nml Nml Nml Nml Right Abd Poll Long Radial (Post Int) C7-8 Nml Nml Nml Nml Nml Right AntTibialis Dp Br Fibular L4-5 Nml Nml Nml Nml Nml Right Gastroc Tibial S1-2 Nml Nml Nml Nml Nml Right Fibularis Long Sup Br Fibular L5-S1 Nml Nml Nml Nml Nml Right Flex Dig Long Tibial L5-S2 Nml Nml Nml Nml Nml Right Ext Dig Brev Dp Br Fibular L5, S1 Nml Nml Nml Nml Nml Right QuadratusFem QuadFemoris L4-5, S1 Nml Nml Nml Nml Nml Left AntTibialis Dp Br Fibular L4-5 Nml Nml Nml Nml Nml Left Gastroc Tibial S1-2 Nml Nml Nml Nml Nml Left Fibularis Long Sup Br Fibular L5-S1 Nml Nml Nml Nml Nml Left Flex Dig Long Tibial L5-S2 Nml Nml Nml Nml Nml Left Ext Dig Brev Dp Br Fibular L5, S1 Nml Nml Nml Nml Nml Left QuadratusFem QuadFemoris L4-5, S1 Nml Nml Nml Nml Nml Left 1stDorInt Ulnar C8-T1 Nml Nml Nml Nml Nml Left Ext Indicis Radial (Post Int) C7-8 Nml Nml Nml Nml Nml Left Ext Digitorum Radial (Post Int) C7-8 Nml Nml Nml Nml Nml Left BrachioRad Radial C5-6 Nml Nml Nml Nml Nml Left PronatorTeres Median C6-7 Nml Nml Nml Nml Nml Left Abd Poll Brev Median C8-T1 Nml Nml Nml Nml Nml Left ABD Dig Min Ulnar C8-T1 Nml Nml Nml Nml Nml Left FlexPolLong Median (Ant Int) C7-8 Nml Nml Nml Nml Nml Left Abd Poll Long Radial (Post Int) C7-8 Nml Nml Nml Nml Nml Right Biceps Musculocut C5-6 Nml Nml Nml Nml Nml Right Triceps Radial C6-7-8 Nml Nml Nml Nml Nml Right Deltoid Axillary C5-6 Nml Nml Nml Nml Nml MTDD
== END 2025-01-22 09:42 | disposition home or self-care (01) ==
LOC: ANHNEURO 09:43
PROVIDERS: PCP Physician Assistant Medical; Visit Provider Physician Assistant Medical
DX: M79.10 Myalgia, unspecified site (principal); M79.601 Pain in right arm; M79.602 Pain in left arm; R20.8 Other disturbances of skin sensation; R53.83 Other fatigue
CPT/HCPCS: 95886; 95913

== ENCOUNTER 2025-02-05 13:00 | Outpatient (RCR) | payer MEDICARE, SELFPAY ==
--- NOTE | 2024-12-27 15:16 | PTOPEVAL1 ---
Assessment and note entered by Yesika Nolan, PT Evaluation Information Assessment Status Evaluation Diagnosis Cervicalgia, pain in right arm ICD-10 Condition Codes (PT) Cervicalgia M54.2 Other ICD-10 Condition Codes ( pain in left arm, abnormal postures PT) Subjective Information Neck pain longer than UE, but UEs last 6 months. Gradual onset Has not had prior therapies for this issue Reports being tired all the time as well Reports PCP told her earlier this week she had Mononucleosis, is not contagious currenty A month or so ago started lyrica and this helped the arm sensation a lot but the neck pain remains Reports sunburn feeling mely UEs, across shoulders, LUE > RUE beginning about 2/3 up arm on topsides but not top of shoulders, but across upper back and lower neck. Reports this sensation in legs also but has history of lumbar issues had epidural shots a couple months ago Hands also feel tight L>R Reports will get a poke sensation but does not have a trend. 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 She states she has pain in the left arm as well that is worse than the right, both hands feel tight, and she has a sunburn sensation along topside of both UEs and across upper back between shoulder blades. Reports has had neck pain for a long time, but more recent sensations in UEs have been about 6 months with gradual onset. Evaluation shows abnormal postures, possible scoliotic curvature, (+) tone and tension bilat upper trapezius, decreased cervical active ROM and thoracic ROM. Description of pain in UEs does not follow dermatome or peripheral nerve patterns consistent with nerve impingement or thoracic outlet syndrome. Discomfort appears largely related to alignment and muscle compensatory patterns. Pt will greatly benefit from physical therapy in order to address deficits and improve function with decreased pain. Plan of Care Interventions Electrical Stimulation,Hot Pack/Cold Pack,Manual Therapy,Mechanical Traction,Neuro Re-education, Therapeutic Activities,Therapeutic Exercise,Self- Care/Home Management,Ultrasound,Other Other Interventions Taping, bracing PT Services Indicated Yes Treatment Frequency and 1-2x weekly x 10 visits Duration These treatments will address the objective and functional deficits as defined above. The patient will be advanced safely and appropriately in order for the patient to progress towards his/her prior level of function. Additional exercises will be introduced and as well as a comprehensive home exercise program upon discharge, if needed, ?to ensure carryover of functional gains achieved in the clinic. This treatment plan has been reviewed and agreement upon by the patient.
--- NOTE | 2024-12-27 15:16 | OPREHPOC ---
Outpatient Therapy Plan of Care This is a Multidisciplinary Plan of Care that may contain components documented by all disciplines (PT, OT, and ST.) PT Problem 1 PT Problem #1 Knowledge Deficit PT Goal 1 Goal / Goal Update Pt will be independent in HEP Pt will verbalize understanding of diagnosis and prognosis Target Visit 5 PT Problem 2 PT Problem #2 Pain PT Goal 1 Goal / Goal Update Pt will report lowest pain rating at 0/10 to show improvement in overall discomfort Target Visit 5 PT Goal 2 Goal / Goal Update Pt will report greatest pain level at 3/10 or less to improve ADLs and activities Target Visit 10 PT Problem 3 PT Problem #3 Impaired Range of Motion PT Goal 1 Goal / Goal Update Pt till demonstrate thoracic ROM of 50% or greater in all places to off load cervical spine requirement Target Visit 5 PT Goal 2 Goal / Goal Update Pt will demonstrate lateral flexion increase to 40 degrees bilat Target Visit 10
--- NOTE | 2025-02-07 16:54 | PTOPPROG ---
Assessment and note entered by Yesika Nolan, PT Evaluation Information Assessment Status Progress Diagnosis Cervicalgia, pain in right arm ICD-10 Condition Codes (PT) Cervicalgia M54.2 Other ICD-10 Condition Codes ( pain in left arm, abnormal postures PT) Subjective Information Last week 01/31 was working outside with her donkeys and billy and one donkey got spooked. She jumped back, felt flat on her buttocks and tailbone, hit her head on the gait. Did not present to E.R. Went to pain management today at 10:30 and was provided a steroid shot, and oral steroids and muscle relaxers. Has not started the oral medications yet. Pt reported she felt like prior to incident she was improving with therapy. [place] that her range, sensation, and pain were all improving. Doing the stretches really helps. Perceived improvement: 70% Pt reports a lot more clicks in her neck recently Received a nerve conduction study which had no abnormal results. still feels the tingling across her shoulders Is also going to be going to [place] for 12 days in a couple weeks Assessment PT Clinical Summary Pt has attended therapy consistently for neck pain and posture. She reports what appears to be a hypersensitivity across the shoulders and at times in the lower arms and legs. She had a nerve conduction study for the extremities which came back normal. Reports she was improving before her incident with her livestock animals. She reports overall decreased intensity of pain at worst rating, but slight increase in pain levels at best rating. Demonstrates improved range in both cervical and thoracic ROM, postures and resting muscle tone also appear improved at this time. Pt has partially met multiple goals and has progressed in all goals. Pt will benefit from continued therapy in order to address deficits and continue to improve function and reduce pain. Plan of Care Interventions Electrical Stimulation,Hot Pack/Cold Pack,Manual Therapy,Mechanical Traction,Neuro Re-education, Therapeutic Activities,Therapeutic Exercise,Self- Care/Home Management,Ultrasound,Other Other Interventions Taping, bracing PT Services Indicated Yes Treatment Frequency and Cont 1-2x weekly x 10 visits Duration These treatments will address the objective and functional deficits as defined above. The patient will be advanced safely and appropriately in order for the patient to progress towards his/her prior level of function. Additional exercises will be introduced and as well as a comprehensive home exercise program upon discharge, if needed, ?to ensure carryover of functional gains achieved in the clinic. This treatment plan has been reviewed and agreement upon by the patient.
--- NOTE | 2025-02-07 16:55 | OPREHPOC ---
Outpatient Therapy Plan of Care This is a Multidisciplinary Plan of Care that may contain components documented by all disciplines (PT, OT, and ST.) PT Problem 1 PT Problem #1 Knowledge Deficit PT Goal 1 Goal / Goal Update Pt will be independent in HEP Pt will verbalize understanding of diagnosis and prognosis Target Visit 5 Progress Met PT Problem 2 PT Problem #2 Pain PT Goal 1 Goal / Goal Update Pt will report lowest pain rating at 0/10 to show improvement in overall discomfort Target Visit 5 Progress Not Met PT Goal 2 Goal / Goal Update Pt will report greatest pain level at 3/10 or less to improve ADLs and activities Target Visit 10 Progress Partially Met PT Problem 3 PT Problem #3 Impaired Range of Motion PT Goal 1 Goal / Goal Update Pt till demonstrate thoracic ROM of 50% or greater in all places to off load cervical spine requirement Target Visit 5 Progress Met PT Goal 2 Goal / Goal Update Pt will demonstrate lateral flexion increase to 40 degrees bilat Target Visit 10 Progress Partially Met
--- NOTE | 2025-03-19 11:30 | PCPTNOTE ---
Admitting Provider: Attending Provider: Lana Wolf PA-C Patient:Kya Ingram Date of :1955 Patient has not returned for any further treatments since 02/05/2025. 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 Patient?s initial visit was on 12/27/2024 14:00 and she had a total of 11 visits, at which time she was consistently presenting for therapy. She had partially met multiple goals though she still had symptoms in UEs and LEs as well as across the top of the shoulders. As we have been unable to contact her for further scheduling, we are discharging at this time due to nonattendance. We would be happy to resume therapy services with an updated prescription.
== END 2025-03-19 11:36 | disposition home or self-care (01) ==
LOC: ANHHIPT 13:00
PROVIDERS: PCP Physician Assistant Medical; Visit Provider Physician Assistant Medical
DX: M79.601 Pain in right arm (principal); M54.2 Cervicalgia
CPT/HCPCS: 95886; 95913; 97012; 97014; 97035; 97110; 97140; 97161; 97530; 97750; G0283